=== PATIENT | male | born 1940 | race African-American/Black ===

== ENCOUNTER 2021-04-02 15:19 | Emergency (ER) | payer MEDICARE, OTHER ==
[~2021-04-02] VITALS: Ht 182.9 cm; Wt 106.4 kg
[~2021-04-02 15:19] MED LIST: ALLO100T2 PO; CARB1TAB35 PO; CELE100 PO; CYAN500T9 PO; DICL100G59 TP; DSS100 PO; GABA-1181 PO; HYDR25TA2 PO; INSLAN SQ; INSU100V SQ; LEVO-72 PO; METF-1211 PO; MULT-1239 PO; OXYC5 PO; POLY17PO PO; SIMV-259 PO; SITA50 PO; TAMS-1 PO; TELM40 PO; VITAD5000 PO
[2021-04-02] MEDS ORDERED: ACETAMINOPHEN 500 MG TABLET PO ONE (16:00)
[2021-04-02 16:30] VITALS: BP 146/72
== END 2021-04-02 17:20 | disposition home or self-care (01) ==
LOC: EMS 15:21
DX: S93.401A Sprain of unspecified ligament of right ankle, initial encounter (principal); I10 Essential (primary) hypertension; E11.9 Type 2 diabetes mellitus without complications; Z79.4 Long term (current) use of insulin; Z79.899 Other long term (current) drug therapy; X50.1XXA Overexertion from prolonged static or awkward postures, initial encounter; Y93.89 Activity, other specified; Y92.89 Other specified places as the place of occurrence of the external cause; Y99.8 Other external cause status
CPT/HCPCS: 82962; 99283